=== PATIENT | male | born 1950 | race Caucasian/White ===

== ENCOUNTER 2022-03-24 13:07 | Day surgery (SDC) | payer MEDICARE, BC ==
[~2022-03-24] VITALS: Ht 185.4 cm; Wt 103.0 kg
[~2022-03-24 13:07] MED LIST: ATEN100T PO; BACL10TA2 PO; DIGO0.253 PO; DULO1CAP6 PO; ELIQ5TAB PO; FARX1TAB5 PO; FENO145T7 PO; METF750T36 PO; MULT-90 PO; OMEP40CA5 PO; OXYC10TA3; TADA20TA PO; TAMS1CAP17 PO; ZOLP10TA2 PO; ceFAZolin SOD 2 GM in IV 1 EA IV ONE
[2022-03-24] MEDS ORDERED: LR 1,000 ML IV SCH (14:00)
[2022-03-24] MEDS ORDERED: LIDOCAINE 2% 100MG/5ML SDV (FOR ANES.) As Ordered ONE (14:54)
[2022-03-24] MEDS ORDERED: propofoL 200 MG/20 ML VIAL As Ordered ONE ×2 (14:54→15:47)
[2022-03-24] MEDS ORDERED: LIDOCAINE 1% MDV 20ML VIAL As Ordered ONE (14:56)
[2022-03-24] MEDS ORDERED: ONDANSETRON 4MG 2ML VIAL As Ordered ONE (14:58)
[2022-03-24] MEDS ORDERED: MIDAZOLAM INJ 2MG/2ML VIAL As Ordered ONE (14:59)
[2022-03-24] MEDS ORDERED: fentaNYL 100 MCG/2 ML INJECTION As Ordered ONE (14:59)
[2022-03-24] MEDS ORDERED: ACETAMINOPHEN 1000MG 100ML IV BAG As Ordered ONE (15:25)
[2022-03-24 17:10] VITALS: BP 147/69
== END 2022-03-24 17:25 | disposition home or self-care (01) ==
LOC: M SDC 13:07
PROVIDERS: ATTEND Internal Medicine Cardiovascular Disease
DX: Z45.010 Encounter for checking and testing of cardiac pacemaker pulse generator [battery] (principal); I48.91 Unspecified atrial fibrillation; I10 Essential (primary) hypertension; E78.5 Hyperlipidemia, unspecified; E11.9 Type 2 diabetes mellitus without complications; Z87.891 Personal history of nicotine dependence; Z79.01 Long term (current) use of anticoagulants; Z79.84 Long term (current) use of oral hypoglycemic drugs; Z79.899 Other long term (current) drug therapy
CPT/HCPCS: 33228; C1785; J0131; J0690; J1100; J2250; J2405; J3010